=== PATIENT | female | born 1960 | race Caucasian/White ===

== ENCOUNTER → 2016-11-25 | Outpatient (CLI) | payer BC ==
[~2016-11-25] VITALS: Ht 160 cm; Wt 83.0 kg
[~2016-11-25] MED LIST: AMBIEN CR12.5 MG PO; Ambien PO; BALANCED B PO; BIOTIN 5000MCG PO; CALCIUM +D & M1 EACH PO; CARAFATE1 GM PO; Carafate PO; DAILY VALUE1 EACH PO; FLEXERIL10 MG PO; KEFLEX500 MG PO; LORTAB 5-325 M1 EACH PO; LOSARTAN POTASS50 MG PO; NAPROSYN500 MG PO; NEXIUM40 M1 PO; NEXIUM40 MG PO; PERCOCET 5/31 TABLET PO; PRISTIQ50 MG PO; PYRIDIUM100 MG PO; Percocet 5/325,Endoc PO; Pristiq PO; SUPER B COMPLE1 EAC1 PO; TRAMADOL HCL50 MG PO; VITAMIN A8000 UNIT PO; VITAMIN C500 M1 PO; VITAMIN D250000 UNIT PO; Vitamin D, Drisdol PO; ZESTRIL10 MG PO; Zestril,Prinivil PO
[2016-11-25 17:09] VITALS: BP 144/79
== END | disposition home or self-care (01) ==
LOC: IVINF 10-02 20:00
DX: M81.0 Age-related osteoporosis without current pathological fracture (principal); E55.9 Vitamin D deficiency, unspecified
CPT/HCPCS: 96365; J3489